=== PATIENT | male | born 1970 ===

== ENCOUNTER 2018-02-23 06:33 | Day surgery (SDC) | payer BC ==
[2018-02-23 08:20] LABS: CALCIUM 7.8 mg/dl (8.6-10.4)
[2018-02-23] MEDS ORDERED: ceFAZolin 1 gm FROZEN Premix 2 GM/100 ML ML IVPB ONE (11:18)
[2018-02-23] MEDS ORDERED: Midazolam 2 MG/2 ML VIAL ONE (11:26)
[2018-02-23] MEDS ORDERED: Rocuronium 10 mg/ml (10 ml) ONE (11:27)
[2018-02-23] MEDS ORDERED: Propofol 10 mg/ml Inj (20 ML) ONE (11:27)
[2018-02-23] MEDS ORDERED: Neostigmine Methylsulfate 3mg/3ml Syringe IV ONE (12:16)
[2018-02-23] MEDS ORDERED: ePHEDrine 50 mg/ml Inj ONE (12:33)
[2018-02-23] MEDS ORDERED: HYDROmorphone 0.5 mg/0.5 ml ISec IVP PRN (12:40)
--- NOTE | 2018-02-23 12:43 | PCM.SURG1 ---
Surgeon's Initial Post Op Note - Surgeon's Notes Surgeon: Dr. Bradley Healthcare Management: Dr. Christian PGY-4 Type of Anesthesia: General Endo Pre-Operative Diagnosis: Renal failure requiring dialysis Operative Findings: good inflow/good outflow of peritoneal catheter Post-Operative Diagnosis: Renal failure requiring dialysis Operation Performed: Laparoscopic peritoneal dialysis catheter Specimen/Specimens Removed: none Estimated Blood Loss: EBL {In ML}: 10 Blood Products Given: N/A Drains Used: No Drains Post-Op Condition: Good Date of Surgery/Procedure: 02/23/18 Time of Surgery/Procedure: 12:42
[2018-02-23 13:58] VITALS: PULSE 58
[2018-02-23 14:17] VITALS: RESP 16; O2SAT 96
[2018-02-23 14:32] VITALS: BP 169/73; TEMP 97.7
--- NOTE | 2018-02-24 00:03 | OP ---
Copied To: Chung Bradley Jr., MD Attending MD: Chung Bradley Jr., MD PROCEDURE DATE: 02/23/2018 PREOPERATIVE DIAGNOSIS: Renal failure. POSTOPERATIVE DIAGNOSIS: Renal failure. PROCEDURE CARRIED OUT: Laparoscopic placement of Tenckhoff peritoneal dialysis catheter. SURGEON: Chung Bradley Jr., MD BRANDING SPECIALIST: Sammi Christian DO ANESTHESIOLOGIST: Dr. Chang. ANESTHESIA: Local with sedation. INDICATIONS: A 47-year-old male with renal insufficiency, soon to start dialysis. OPERATIVE FINDINGS: One catheter was inserted uneventfully. DESCRIPTION OF PROCEDURE: The patient was given general anesthesia and intravenous antibiotics. A Veress needle was inserted in the right upper quadrant of the midline. After pneumoperitoneum was created, a 5-mm trocar was placed in the right upper quadrant. After this had been placed under vision, we placed the catheter just to the right of the midline, tunneled down through the rectus sheath, and entered into the peritoneal cavity. The catheter was then advanced and into the pelvis. We were satisfied with the position. We then ran fluid in and out after we brought out through the subcutaneous tunnel. After this had been done, we secured to the skin with dressing. No sutures were used. Blood loss during the procedure was less than 10 mL. The fluid that was administered was then returned, and the procedure was terminated. OPERATION CARRIED OUT: Laparoscopic placement of Tenckhoff peritoneal dialysis catheter. Chung Bradley Jr., MD
== END 2018-02-23 14:40 | disposition home or self-care (01) ==
LOC: C.SDS 06:33
PROVIDERS: ATTEND Surgery Vascular Surgery
DX: I12.9 Hypertensive chronic kidney disease with stage 1 through stage 4 chronic kidney disease, or unspecified chronic kidney disease (principal); E11.22 Type 2 diabetes mellitus with diabetic chronic kidney disease; N18.9 Chronic kidney disease, unspecified
CPT/HCPCS: 36415; 49418; 80048; 82948; J0690; J2001; J2250; J2405; J2704; J2710; J3010